=== PATIENT | female | born 1960 | race African-American/Black ===

== ENCOUNTER 2016-11-20 12:37 | Emergency (ER) | payer OTHER ==
[~2016-11-20] VITALS: Ht 162.6 cm; Wt 82.6 kg
[2016-11-20 12:44] VITALS: TEMP 36.6; Ht 162.6 cm; Wt 82.6 kg
[2016-11-20] MEDS ORDERED: XYLOCAINE 1%/SOD BICARB 20 ML VIAL INFIL ONE (13:15)
[2016-11-20] MEDS ORDERED: DIPHTHERIA/TETANUS/PERTUSSIS 0.5 ML SYR/VIAL IM. ONE (13:15)
[2016-11-20 14:04] VITALS: BP 160/79; PULSE 100; O2SAT 95
--- NOTE | 2016-11-21 10:37 | EMERGENCY ROOM VISIT NOTE ---
ED Visit Note First contact with patient: 12:57 Chief Complaint: I cut my left middle finger. History of Present Illness: Ms. Yakelin sandy is a 56-year-old female who ambulates into the ED complaining of a laceration over the anterior aspect of the left middle finger at the PIP joint. Patient reports she was at work today and opening a box with a utility knife when she accidentally cut herself. She reports she control bleeding but did not wash her wound. Associated with her and she reports has a stinging pain in the area the laceration. She rates the cup 4/10. Pain is nonradiating. Pain worsens with palpation. She has not identified any alleviating factors related to the pain. She has not had any medications for pain prior to arrival at the hospital. She denies any associated symptoms with her pain including other hand pain, other finger pain, left middle finger weakness/numbness/tingling. Review of Systems: As noted above in history of present illness. Past Medical History: Status post hysterectomy. Current Medications: Patient denies. Allergies to Medications: Patient denies. Social History: Patient is currently employed; she feels safe in her home environment; she denies tobacco and alcohol use. Tetanus Immunization Status: Patient reports greater than 10 years. Physical Examination: Vital Signs: Date Time Temp Pulse Resp B/P Pulse Ox O2 Delivery O2 Flow Rate FiO2 11/20/16 14:04 100 18 160/79 95 11/20/16 12:44 36.6 100 18 160/79 95 Room Air GENERAL: 56-year-old female in mild distress due to pain, nontoxic-appearing, afebrile and hemodynamically stable. NEUROLOGICAL: Awake, alert and oriented to person, place and time. Answering questions appropriately and following commands. SKIN: Warm, dry and pink. Left Middle Finger: 1.3 cm full-thickness laceration over the anterior aspect of the PIP joint. No active bleeding. LEFT MIDDLE FINGER: No gross bony deformity. Laceration as noted above. Full range of motion against resistance in flexion and extension of the MCP, PIP and DIP joint. Throughout the finger the skin was warm and pink and capillary refill is brisk. She was able to distinguish light sensations through all dermatomes. ED Course: Patient is assessed as noted above. Wound Repair: Complexity: Basic Verbal consent was obtained after the risks and benefits were explained. The skin was prepped with betadine and a sterile field set. A digital block was performed on the finger with 4.8 cm of buffered 1% lidocaine. The wound was explored for foreign bodies and none found. Copious irrigation was performed using sterile saline. With direct pressure the bleeding subsided. Debridement was not performed. The wound edges were approximated using 5-0 Ethilon with 5 simple interrupted sutures. Hemostasis and excellent approximation was achieved. Antibacterial ointment and a sterile dressing applied. A metal finger splint was applied. No complications and the patient tolerated the procedure well. Patient was educated about john's findings and instructed on her treatment plan; she verbalizes understanding and agreement with this plan. Clinical Impression: Laceration of the left or. Work related injury. Disposition: Patient discharged home in stable condition; prior to departure she was reassessed and subjectively reported pain free. Plan: Comfort measures, wound care, and signs of infection were discussed with the patient. Patient was encouraged to follow-up with Workmen's Compensation or return to the ED for signs of infection and/or suture removal in 10-12 days.
== END 2016-11-20 14:06 | disposition home or self-care (01) ==
LOC: C.EDB 12:39 → C.EDD 14:06
DX: S61.213A Laceration without foreign body of left middle finger without damage to nail, initial encounter (principal); W26.0XXA Contact with knife, initial encounter; Y99.0 Civilian activity done for income or pay; Y93.89 Activity, other specified; Z23 Encounter for immunization

== ENCOUNTER → 2016-12-24 | Day surgery (SDC) | payer SELFPAY ==
[2016-12-11 12:01] VITALS: BMI 31.0
[~2016-12-24] VITALS: Ht 162.6 cm; Wt 81.8 kg
[~2016-12-24] MED LIST: LIDOCAINE HCL 2% 2 ML VIAL (20MG/ML) ONE; MIDAZOLAM HCL 1 MG/ML 2ML VIAL ONE; ONDANSETRON INJ 2 MG/ML 2 ML VIAL ONE; PROPOFOL IV EMULSION 10 MG/ML 20 ML VIAL IV ONE; SODIUM CHLORIDE 0.9% 500ML 500 ML IV ONE
[2016-12-24 11:11] VITALS: Ht 162.6 cm; Wt 81.8 kg
[2016-12-24 11:37] VITALS: TEMP 36.4
--- NOTE | 2016-12-24 12:14 | Endo History and Physical ---
History & Physical Date of Service: Dec 24, 2016. Chief Complaint: Screening Referring Physician: DR. PATEL History of Present Illness 56 yo female who presents for screening colonoscopy. Past Surgical History Hx Cardiac Surgery: No Hx Internal Defibrillator: No Hx Pacemaker: No Hx Abdominal Surgery: Yes (APPY, JESSEE) Hx of Implantable Prosthesis: No Hx Post-Op Nausea and Vomiting: No Hx Cancer Surgery: No Hx Thoracic Surgery: No Hx Orthopedic: No Hx Urinary Tract Surgery: No Family History None Social History Smoking Status: Never Smoker Hx Substance Use: No Hx Alcohol Use: No Allergies Coded Allergies: NO KNOWN DRUG ALLERGIES (Verified Allergy, Unknown, ., 12/11/16) Current Medications Reported Home Medications Medications Dose Route/Sig Max Daily Dose Days Date Category No Active Prescriptions or Reported Medications Rx Vital Signs Weight (Kilograms): 81.82 Height (Feet): 5 Height (Inches): 4 Date Time Temp Pulse Resp B/P Pulse Ox O2 Delivery O2 Flow Rate FiO2 12/24/16 11:37 36.4 89 18 147/86 99 Room Air Physical Exam General Appearance: WD/WN, no apparent distress Respiratory/Chest: Auscultation: breath sounds normal Cardiovascular: Heart Auscultation: RRR Abdomen: Bowel Sounds: normal Inspection & Palpation: soft, non-distended, no tenderness, guarding & rebound Assessment and Plan Assessment: 56 yo female who presents for screening colonoscopy. Plan: Proceed with colonoscopy.
--- NOTE | 2016-12-24 12:31 | Discharge Instructions ---
Endoscopy Patient Instructions Date / Procedure(s) Performed Dec 24, 2016. Colonoscopy Allergy Information Coded Allergies: NO KNOWN DRUG ALLERGIES (Verified Allergy, Unknown, ., 12/11/16) Discharge Date / Findings Dec 24, 2016. Normal colonoscopy Medication Instructions OK to resume all medications today as prescribed Reported Home Medications Medications Dose Route/Sig Max Daily Dose Days Date Category No Active Prescriptions or Reported Medications Rx Provider Instructions Activity Restrictions - No exercising or heavy lifting for 24 hours. - Do not drink alcohol the day of the procedure. - Do not drive a car or operate machinery until the day after the procedure. - Do not make any important decisions or sign important papers in 24 hours after the procedure. Following Day: - Return to full activity which may include returning to work/school. Diet Start your diet with liquids and light foods (jello, soup, juice, toast). Then eat your usual diet if not nauseated. Treatment For Common After Affects For mild abdominal pain, bloating, or excessive gas: - Rest - Eat lightly - Lie on right side Follow-Up Information Follow-up with DR. PATEL as scheduled Anesthesia Information What You Should Know You have had a procedure that required some medicine to reduce anxiety and discomfort. This treatment is called moderate sedation. After receiving the treatment, you may be sleepy, but you will be able to breathe on your own. The effects of the treatment may last for several hours. Follow these instructions along with Activity/Diet recommendations noted above: * Do NOT do anything where dizziness or clumsiness would be dangerous. * Rest quietly at home today, then you can be up and about tomorrow. * Have a responsible person stay with you the rest of today. * You may have had an I.V. today. If so, you may take the dressing off later today. Recommendations Call your doctor if: * Trouble breathing * Continuous vomiting for more than 24 hours * Temperature above 101 degrees * Severe abdominal pain or bloating * Pain not relieved by pain medicine ordered * There is increased drainage or redness from any incision * A large amount of rectal bleeding greater than 2-3 tablespoons. (If you had a polyp/s removed or have hemorrhoids, a small amount of blood - from the rectum is to be expected.) * You have any unanswered questions or concerns. IN THE EVENT OF A SERIOUS EMERGENCY, GO TO THE NEAREST EMERGENCY ROOM Your discharge instructions were prepared by provider Juan Wasserman. Patient Instructions Signature Page Idris Hamlin Patient (or Guardian) Signature/Date: I have read and understand the instructions given to me by my caregivers. Caregiver/RN/Doctor Signature/Date: The above-named patient and/or guardian has received patient instructions on this date. + Original Patient Signature Page (only) stays with chart. Please make copy for patient.
--- NOTE | 2016-12-24 12:33 | GI REPORT ---
Procedure Date: 12/24/2016 11:39 AM Procedure: Colonoscopy Indications: Screening for colorectal malignant neoplasm Medicines: Monitored Anesthesia Care Complications: No immediate complications. Estimated Blood Loss: Estimated blood loss: none. Procedure: Pre-Anesthesia Assessment: - Prior to the procedure, a History and Physical was performed, and patient medications and allergies were reviewed. The patient's tolerance of previous anesthesia was also reviewed. The risks and benefits of the procedure and the sedation options and risks were discussed with the patient. All questions were answered, and informed consent was obtained. Prior Anticoagulants: The patient has taken no previous anticoagulant or antiplatelet agents. ASA Grade Assessment: II - A patient with mild systemic disease. After reviewing the risks and benefits, the patient was deemed in satisfactory condition to undergo the procedure. After I obtained informed consent, the scope was passed under direct vision. Throughout the procedure, the patient's blood pressure, pulse, and oxygen saturations were monitored continuously. The scope was introduced through the anus and advanced to the cecum, identified by appendiceal orifice and ileocecal valve. The colonoscopy was performed without difficulty. The patient tolerated the procedure well. The quality of the bowel preparation was good. The appendiceal orifice and the rectum were photographed. Findings: The entire examined colon appeared normal. Impression: - The entire examined colon is normal. - No specimens collected. Recommendation: - Resume previous diet. - Continue present medications. - Repeat colonoscopy in 10 years for surveillance. - Return to primary care physician as previously scheduled. Juan Wasserman DO 12/24/2016 12:33:03 PM This report has been signed electronically. Note Initiated On: 12/24/2016 11:39 AM I attest to the content of the Intraoperative Record and orders documented therein, exceptions below
[2016-12-24 13:10] VITALS: BP 147/76; PULSE 93; O2SAT 99
--- NOTE | 2016-12-24 13:52 | Anesthesiology Progress Note ---
Anesthesia Post Op Note Date & Time Dec 24, 2016 at 13:53 Vital Signs Pain Intensity: 0 Vital Signs Past 12 Hours Date Time Temp Pulse Resp B/P Pulse Ox O2 Delivery O2 Flow Rate FiO2 12/24/16 13:10 93 18 147/76 99 Room Air 12/24/16 12:55 93 18 148/76 99 Room Air 12/24/16 12:46 92 18 153/77 99 Room Air 12/24/16 12:36 91 18 117/59 98 Room Air 12/24/16 11:37 36.4 89 18 147/86 99 Room Air Notes Mental Status: alert / awake / arousable, participated in evaluation Pt Amnestic to Procedure: Yes Nausea / Vomiting: adequately controlled Pain: adequately controlled Airway Patency, RR, SpO2: stable & adequate BP & HR: stable & adequate Hydration State: stable & adequate Anesthetic Complications: no major complications apparent
== END | disposition home or self-care (01) ==
LOC: C.GI 10:45
PROVIDERS: ATTEND Internal Medicine
DX: Z12.11 Encounter for screening for malignant neoplasm of colon (principal)

== ENCOUNTER 2018-01-06 10:06 | Emergency (ER) | payer OTHER ==
[~2018-01-06] VITALS: Ht 162.6 cm; Wt 84.1 kg
[2018-01-06 10:15] VITALS: Ht 162.6 cm; Wt 84.1 kg
--- NOTE | 2018-01-06 10:38 | EMERGENCY ROOM VISIT NOTE ---
History Report prepared by Jair: Jennifer Lora Under the Supervision of: Dr. Barrie Paniagua M.D. First contact with patient: 10:18 Chief Complaint: HYPERTENSION Stated Complaint: HTN History of Present Illness The patient is a 57 year old female who presents to the Emergency Room with complaints of constant hypertension for the past couple of days. The patient has a history of hypertension. She recently moved to the from [facility] and has not established a PCP in the [place]. She is still taking medications for HTN from her doctor in [facility]. She states that she is taking this medication sporadically and not regularly. Yesterday she had a friend check her blood pressure and it was 140s systolic. She took a dose of her friend's blood pressure medication yesterday. The patient states that she has felt nauseated and occasionally short of breath. She denies chest pain and vomiting. She denies any personal history of DM or VA. 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 A total of 10 systems reviewed and were otherwise negative. Past Medical & Surgical Medical Problems: (1) HTN (hypertension) (2) Laceration Family History No pertinent history stated. Social History Smoking Status: Never Smoker Occupation Status: employed Current/Historical Medications Scheduled Telmisartan (Micardis), 40 MG PO DAILY Telmisartan (Micardis), 1 TAB PO DAILY Allergies Coded Allergies: NO KNOWN DRUG ALLERGIES (Verified Allergy, Unknown, ., 12/11/16) Physical Exam Vital Signs Date Time Temp Pulse Resp B/P (MAP) Pulse Ox O2 Delivery O2 Flow Rate FiO2 01/06/18 12:45 36.4 78 18 137/76 100 01/06/18 10:40 88 01/06/18 10:15 36.4 91 18 150/83 96 Room Air Physical Exam GENERAL: Patient is in no acute distress. HEENT: No acute trauma, normocephalic atraumatic, mucous membranes moist, no nasal congestion, no scleral icterus. NECK: No stridor, no adenopathy, no meningismus, trachea is midline. LUNGS: Clear to auscultation bilaterally, no wheeze, no rhonchi, breath sounds equal. HEART: Without murmurs gallops or rubs, regular rate and rhythm. ABDOMEN: Soft, nontender, bowel sounds positive, no hernias, no peritonitis. EXTREMITIES: No cyanosis or edema, full range of motion of all the joints without pain or difficulty, no signs for acute trauma. NEUROLOGIC: Oriented x 3, no acute motor or sensory deficits, no focal weakness. SKIN: No rash, no jaundice, no diaphoresis. Medical Decision & Procedures Laboratory Results 01/06/18 10:55 01/06/18 10:55 Test 01/06/18 10:55 Red Blood Count 4.98 M/uL (4.2-5.4) Mean Corpuscular Volume 79.9 fL (80-100) Mean Corpuscular Hemoglobin 27.5 pg (25-34) Mean Corpuscular Hemoglobin Concent 34.4 g/dl (32-36) RDW Standard Deviation 39.4 fL (36.4-46.3) RDW Coefficient of Variation 13.6 % (11.5-14.5) Mean Platelet Volume 9.9 fL (7.4-10.4) Anion Gap 7.0 mmol/L (3-11) Est Creatinine Clear Calc Drug Dose 105.9 ml/min Estimated GFR () 117.0 Estimated GFR (Non- 101.0 BUN/Creatinine Ratio 20.3 (10-20) Calcium Level 9.0 mg/dl (8.5-10.1) Troponin I < 0.015 ng/ml (0-0.045) Thyroid Stimulating Hormone (TSH) 2.620 uIu/ml (0.300-4.500) Free Thyroxine 1.02 ng/dl (0.80-1.60) Laboratory results reviewed by me. ECG Per My Interpretation Indication: other (hypertension) Rate (beats per minute): 90 Rhythm: normal sinus Findings: nonspecific-ST abn, other (no PVCs, no ST elevation) ED Course 1018: The patient was evaluated in room B6. A complete history and physical exam was performed. 1157: I reassessed the patient at this time. She is feeling better and resting comfortably. The pharmacist had been in to speak with the patient about her medications. I discussed the results and treatment plan with the patient. I answered all pertaining questions that she had. She expressed understanding and verbalized agreement. The patient will be discharged home. Medical Decision Differential diagnoses includes essential hypertension, renal failure, UTI, missed medication dosing, anemia, electrolyte imbalance. There is no leukocytosis or concerning anemia. No significant electrolyte abnormality or kidney failure. EKG shows a sinus rhythm, no acute ischemia. Cardiac enzyme testing 1 is not consistent with acute cardiac injury. The patient appears to be in a euthyroid state. On exam, the patient is not toxic or febrile. The patient presents because she has no family doctor and is running out of her blood pressure medication, the medication she brought with her from [facility]. The patient was seen by pharmacy. She appears to be taking Micardis. I did write a prescription for this medication. She was encouraged to take it every day, not sporadically. She was given information to find a family doctor. If things are worsening, she can return. Medication Reconcilliation Current Medication List: was personally reviewed by me Blood Pressure Screening Patient's blood pressure: Elevated blood pressure Blood pressure disposition: Referred to PCP Impression Primary Impression: HTN (hypertension) Scribe Attestation The scribe's documentation has been prepared under my direction and personally reviewed by me in its entirety. I confirm that the note above accurately reflects all work, treatment, procedures, and medical decision making performed by me. Departure Information Dispostion Home / Self-Care Prescriptions Telmisartan (MICARDIS) 40 Mg Tab 1 TAB PO DAILY for 30 Days, #30 TAB 5 Refills Prov: Barrie Paniagua M.D. 01/06/18 Referrals No Doctor, Assigned (PCP) Forms HOME CARE DOCUMENTATION FORM, IMPORTANT VISIT INFORMATION, WORK / SCHOOL INSTRUCTIONS Patient Instructions My [facility] Additional Instructions use Micardis for blood pressue contact fam doctor for an appt return if worsening lab testing and ECG today were all ok
[2018-01-06 11:05] LABS: HEMATOCRIT 39.8 % (37-47); HEMOGLOBIN 13.7 g/dL (12.0-16.0); MEAN CELL VOLUME 79.9 fL (80-100); MEAN CORPUSCULAR HEMOGLOBIN 27.5 pg (25-34); MEAN CORPUSCULAR HGB CONC 34.4 g/dl (32-36); MEAN PLATELET VOLUME 9.9 fL (7.4-10.4); PLATELET COUNT 267 K/uL (130-400); RED CELL DISTRIBUTION WIDTH CV 13.6 % (11.5-14.5); RED CELL DISTRIBUTION WIDTH SD 39.4 fL (36.4-46.3); WHITE BLOOD COUNT 6.12 K/uL (4.8-10.8)
[2018-01-06] MEDS ORDERED: TELM40TA11 PO (11:07)
[2018-01-06 11:22] LABS: BLOOD UREA NITROGEN 13 mg/dl (7-18); CARBON DIOXIDE 26 mmol/L (21-32); CREATININE 0.63 mg/dl (0.60-1.20); GLUCOSE 122 mg/dl (70-99); POTASSIUM 3.6 mmol/L (3.5-5.1); SODIUM 138 mmol/L (136-145)
[2018-01-06] MEDS ORDERED: TELM40TA PO (11:55)
[2018-01-06 12:45] VITALS: BP 137/76; PULSE 78; TEMP 36.4; O2SAT 100
== END 2018-01-06 12:47 | disposition home or self-care (01) ==
LOC: C.EDB 10:08
DX: I10 Essential (primary) hypertension (principal)

== ENCOUNTER → 2018-02-06 | Outpatient (CLI) | payer OTHER ==
[~2018-02-06] MED LIST changes: -LIDOCAINE HCL 2% 2 ML VIAL (20MG/ML) ONE; -MIDAZOLAM HCL 1 MG/ML 2ML VIAL ONE; -ONDANSETRON INJ 2 MG/ML 2 ML VIAL ONE; -PROPOFOL IV EMULSION 10 MG/ML 20 ML VIAL IV ONE; -SODIUM CHLORIDE 0.9% 500ML 500 ML IV ONE; +TELM40TA PO; +TELM40TA11 PO
--- NOTE | 2018-02-06 15:04 | MAMMOGRAPHY REPORT ---
UNILATERAL RIGHT DIGITAL DIAGNOSTIC MAMMOGRAM TOMOSYNTHESIS: 02/06/2018 CLINICAL HISTORY: Callback from screening mammogram for right breast asymmetries. TECHNIQUE: Breast tomosynthesis in addition to standard 2D mammography was performed. Repeat right CC 2D and tomosynthesis images and spot compression right CC and MLO 2D and tomosynthesis images were obtained. COMPARISON: Comparison is made to exams dated: 10/30/2017 mammogram and 06/13/2016 mammogram - [facility]. BREAST COMPOSITION: There are scattered areas of fibroglandular density in the right breast. FINDINGS: The previously described nodular asymmetries seen within the right breast efface on the add itional images. Normal fibroglandular tissue is seen in this region, without evidence of a suspiciou s mass or architectural distortion. The asymmetries are benign and compatible with normal fibrogland ular tissue. IMPRESSION: ACR BI-RADS CATEGORY 2: BENIGN The right breast asymmetries efface on the additional images, and are benign and compatible with norm al fibroglandular tissue. There is no mammographic evidence of malignancy. Return to annual mammogra m screening schedule is recommended, due October 2018. The patient has been verbally notified of th e results. Approximately 10% of breast cancers are not detected with mammography. A negative mammographic report should not delay biopsy if a clinically suggestive mass is present. Thania Loera M.D. ah/:02/06/2018 09:59:01 Methods Engineer: Delmy SCHMIDT(Jess)(M), [facility] letter sent: Normal 1/2 BI-RADS Code: ACR BI-RADS Category 2: Benign
== END | disposition home or self-care (01) ==
LOC: C.MAMM 09:33
PROVIDERS: ATTEND Student in an Organized Health Care Education/Training Program
DX: N64.9 Disorder of breast, unspecified (principal)

== ENCOUNTER → 2018-03-03 | Outpatient (CLI) | payer OTHER | END | disposition home or self-care (01) | LOC: C.MAMM 09:39 | PROVIDERS: ATTEND Internal Medicine | DX: M85.88 Other specified disorders of bone density and structure, other site (principal); M85.89 Other specified disorders of bone density and structure, multiple sites ==

== ENCOUNTER → 2018-07-02 | Outpatient (CLI) | payer OTHER ==
--- NOTE | 2018-07-02 16:25 | DIAGNOSTIC IMAGING REPORT ---
L KNEE 3 VIEWS CLINICAL HISTORY: M25.569 left knee pain COMPARISON: None. DISCUSSION: No fractures or dislocations are visualized. Degenerative changes are present within the patellofemoral joint. No destructive lesions are visualized. IMPRESSION: 1. No evidence of fracture. 2. Degenerative changes most pronounced within the patellofemoral joint Electronically signed by: Lion Mclean M.D. 07/02/2018 4:23 PM Dictated Date/Time: 07/02/2018 4:23 PM
== END | disposition home or self-care (01) ==
LOC: C.RAD 15:58
PROVIDERS: ATTEND Internal Medicine
DX: M25.569 Pain in unspecified knee (principal); M17.12 Unilateral primary osteoarthritis, left knee

== ENCOUNTER → 2018-07-02 | Outpatient (CLI) | payer OTHER | END | disposition home or self-care (01) | LOC: C.LABBFT 08:11 | PROVIDERS: ATTEND Physician Assistant Medical | DX: M25.569 Pain in unspecified knee (principal) ==